=== PATIENT | female | born 1960 | race Caucasian/White ===

== ENCOUNTER → 2018-04-11 13:06 | Outpatient (CLI) | payer OTHER, SELFPAY ==
--- NOTE | 2018-04-11 | DI.MG.S_ITS ---
BILATERAL DIGITAL SCREENING MAMMOGRAM 3D/2D WITH CAD POST LUMPECTOMY WITH AUGMENTATION: 04/11/2018 CLINICAL: Routine screening. Personal history of breast cancer. Comparison is made to exams dated: 12/14/2016 mammogram, 06/17/2015 mammogram, and 04/02/2014 mammogram - [facility]. There are scattered fibroglandular elements in both breasts. Current study was also evaluated with a Computer Aided Detection (CAD) system. Bilateral breast implants are stable. There are benign post operative findings in the right breast. There are linear scar markers overlying both breasts and the left axilla. There is a circular mole marker on the left breast. There is a punctate BB marker overlying the right nipple. No significant masses, calcifications, or other findings are seen in either breast. There has been no significant interval change. IMPRESSION: There is no mammographic evidence of malignancy. A 1 year screening mammogram is recommended. This exam was interpreted at Station ID: [id number]. NOTE: For mammograms, a report in lay terms will be sent to the patient. Approximately 15% of breast malignancies will not be visualized mammographically. In the management of a palpable breast mass, a negative mammogram must not discourage biopsy of a clinically suspicious lesion. Electronically Signed By: Jarocho Johnson M.D. ecl/:04/11/2018 21:06:32 letter sent: Normal Exam ACR BI-RADS Category 2: Benign Finding(s) 3342F
== END ==
PROVIDERS: Family Provider Family Medicine; PCP Family Medicine; Visit Provider Family Medicine
DX: Z12.31 Encounter for screening mammogram for malignant neoplasm of breast (principal); Z85.3 Personal history of malignant neoplasm of breast
CPT/HCPCS: 77063; 77067

== ENCOUNTER → 2018-05-16 13:53 | Outpatient (CLI) | payer OTHER, SELFPAY ==
--- NOTE | 2018-05-16 | DI.ECHO.S_ITS ---
[facility] +---------+ : : [address] : : : : [id number] : : : : Phone: [phone]+ Echocardiogram Report + + :Name: ALISHA BEATTY Study Date: 05/16/2018 Height: 67 in : :[facility] Weight: 159 lb : : Gender: Female BSA: 1.8 m2 : :: 1960 Age: 57 yrs BP: 122/84 mmHg: :Reason For Study: Hypertension : : Performed By: Catherine Hoffmann : :Referring: MATTHEW RAMIREZ : + + Interpretation Summary The left ventricle is normal in size, wall thickness, and systolic function without any focal wall motion abnormalities. The ejection fraction is estimated to be 60-65%. Diastolic parameters suggest probable normal left ventricular diastolic function and normal filling pressures. LV ejection fraction has not changed. The right ventricle grossly appears normal in size with probable normal systolic function. The right ventricular systolic pressure is estimated to be at least 23 mmHg based on an estimated right atrial pressure of 3 mm Hg. The left atrial size is normal. Right atrial size is normal. There is no significant valvular heart disease. The aortic arch is mildly enlarged, which has mildly increased from 3.2 cm to 3.5 cm. Procedure: A two-dimensional transthoracic echocardiogram with color flow and Doppler was performed. The study quality was technically adequate. Comparison is made with the echocardiogram of 04-19-17. The patient was in normal sinus rhythm during the exam. Left Ventricle: The left ventricle is normal in size, wall thickness, and systolic function without any focal wall motion abnormalities. The ejection fraction is estimated to be 60-65%. Diastolic parameters suggest probable normal left ventricular diastolic function and normal filling pressures. Right Ventricle: The right ventricle grossly appears normal in size with probable normal systolic function. Atria: The left atrial size is normal. Right atrial size is normal. The interatrial septum is intact with no evidence for an atrial septal defect. Mitral Valve: The mitral valve is normal in structure and function. There is no mitral regurgitation noted. Aortic Valve: The aortic valve opens well. The aortic valve is not well visualized. No aortic regurgitation is present. Tricuspid Valve: The tricuspid valve is normal in structure and function. There is a trace or physiologic amount of tricuspid regurgitation. The right ventricular systolic pressure is estimated to be at least 23 mmHg based on an estimated right atrial pressure of 3 mm Hg. Pulmonic Valve: The pulmonic valve is normal in structure and function. There is a trace or physiologic amount of pulmonic regurgitation. There is no significant valvular heart disease. Great Vessels: The aortic root is normal size. The dimensions of the ascending aorta are normal. The aortic arch is mildly enlarged. The IVC is of normal diameter and collapses greater than 50% with a sniff. This suggests a low right atrial pressure of 3 mm Hg. Pericardium/ Pleura There is no pericardial effusion. There is no pleural effusion. MMode/2D Measurements & Calculations LVIDd: 4.6 cm Aortic Jxn: 2.4 cm LVIDs: 2.8 cm asc Aorta Diam: 3.3 cm FS: 38.8 % Ao Arch Diam (Prox Trans): 3.5 cm EPSS: 0.22 cm IVSd: 0.87 cm LVPWd: 0.82 cm LV mclain. diameter/BSA (cm/m^2): 2.5 LV sys. diameter/BSA (cm/m^2): 1.5 LA dimension: 3.8 cm RA long axis: 4.4 cm LA A2 area: 15.3 cm2 RA area: 13.0 cm2 LA A4 area: 18.0 cm2 RA vol: 32.5 ml LA length (vol): 5.0 cm RA : 17.7 ml/m2 LA vol: 47.0 ml IVC diam: 1.3 cm LA vol index: 25.6 ml/m2 RVDd major: 5.4 cm RVD1 (basal): 3.4 cm RVD2 (mid): 2.6 cm Doppler Measurements & Calculations Ao V2 max: 158.9 cm/sec MV E max ton: 74.1 cm/sec Ao V2 mean: 95.1 cm/sec MV A max ton: 66.7 cm/sec Ao max P.1 mmHg MV E/A: 1.1 Ao mean P.4 mmHg Med Peak E' Ton: 6.8 cm/sec Ao V2 VTI: 32.7 cm E/E' med: 10.8 Lat Peak E' Ton: 8.3 cm/sec E/E' lat: 8.9 E/e' average: 9.9 MV dec time: 0.23 sec MV P1/2t: 66.7 msec TR max ton: 222.3 cm/sec MV P1/2t max ton: 73.7 cm/sec TR max P.8 mmHg MVA(P1/2t): 3.3 cm2 PA V2 max: 78.1 cm/sec PA V2 mean: 49.0 cm/sec PA mean P.1 mmHg PA Accel Time: 0.19 sec Reading Physician:05:23 PM
== END ==
PROVIDERS: PCP Family Medicine; Visit Provider Family Medicine
DX: I10 Essential (primary) hypertension (principal); I49.3 Ventricular premature depolarization
CPT/HCPCS: 93306

== ENCOUNTER 2018-06-20 06:23 | Day surgery (SDC) | payer OTHER, SELFPAY ==
[2018-06-20] VITALS (7 sets, daily range): BP systolic 91–115; BP diastolic 57–71; PULSE 57–77; RESP 12–18; TEMP 36.1–37.1; O2SAT 95–100; BMI 24.2
--- NOTE | 2018-06-20 | PATH_ITS ---
[facility] Accession Number: [id number] . 01 Material submitted: . PART A: COLON POLYP BIOPSY AT 85CM X3 PART B: COLON BIOPSY AT 50CM PART C: COLON POLYP BIOPSY AT 20CM PART D: ANUS POLYP BIOPSY . 02 Diagnosis: A. Biopsy, Colon Polyp at 85 cm: Tubular adenoma involving single biopsy fragment. Two fragments of normal appearing colon mucosa consistent with mucosal polypoid redundancy. . B. Colon Biopsy at 50 cm: Fragments of normal appearing colon mucosa. Negative for significant architectural distortion. Negative for significant inflammation, dysplasia, and malignancy. . C. Biopsy, Colon Polyp at 20 cm: Tubular adenoma involving single biopsy fragment. . D. Biopsy, Anus Polyp: Hyperplastic polyp involving rectal mucosa. No anal mucosa identified. MRV/06/23/2018 . 02 Electronically signed: . Gt Godoy MD, Pathologist NPI- [id number] . 01 Gross description: . Part A: COLON POLYP BIOPSY AT 85CM X3: Received in formalin are 3 fragment(s) of tabor, soft tissue measuring 0.2 x 0.2 x 0.2 cm to 0.4 x 0.2 x 0.2 cm which is entirely submitted and submitted entirely in 1 cassette(s) Part B: COLON BIOPSY AT 50CM: Received in formalin are 3 fragment(s) of tabor, soft tissue measuring 0.1 x 0.1 x 0.1 cm to 0.3 x 0.2 x 0.2 cm which is entirely submitted and submitted entirely in 1 cassette(s) Part C: COLON POLYP BIOPSY AT 20CM: Received in formalin are multiple fragment(s) of tabor, soft tissue measuring 0.1 x 0.1 x 0.1 cm to 0.4 x 0.2 x 0.2 cm which are entirely submitted and submitted entirely in 1 cassette(s) Part D: ANUS POLYP BIOPSY: Received in formalin is 1 fragment(s) of tabor, soft tissue measuring 0.3 x 0.2 x 0.2 cm which is entirely submitted and submitted entirely in 1 cassette(s) /D[facility] /[facility] . 02 Pathologist provided ICD-10: D12.4 . 02 CPT . 118744, 989075, 245203, [id number] Performed at: 01 [facility] [address] [id number] MD Javier Grace MD Phone: [phone] Performed at: 02 [facility] [address] [place] [id number] MD Marilyn Pichardo MD Phone: [phone]
[2018-06-20] MEDS: SODIUM CHLORIDE 0.9% 1,000 ML 200 ML IV (07:45)
--- NOTE | 2018-06-20 08:25 | PM.HP.1 ---
History of Present Illness Date Patient Seen: 06/20/18 Time Patient Seen: 08:25 Chief complaint: [id number] Narrative: The patient is a woman here for a colonoscopy. Her daughter has colon cancer. She has had her last exam 6 years ago. She has been having rectal bleeding. She feels like there is a paper cut at her anus intermittently and then she has blood on the tissue Patient History Medical History Hemorrhoids (Acute) History of UTI (Acute) History of breast cancer (Acute) Hyperlipidemia (Acute) Seasonal allergies (Acute) Sinus drainage (Acute) HTN (hypertension) (Chronic) Hx of malignant neoplasm of female breast (Resolved) Surgical History History of removal of Port-a-Cath (Acute ~2002) Hx of bladder repair surgery (Acute) H/O rectocele repair (Resolved) History of augmentation of both breasts (Resolved) History of lumpectomy of right breast (Resolved) S/P complete hysterectomy (Resolved) Family History Mother Hypertension Cancer Father Hypertension Heart disease Stroke Social History marital status: household members: spouse, family and children occupational status: employed Smoking Status: Never smoker alcohol intake: current substance use type: does not use Family & Social History Family History Mother Hypertension Cancer Father Hypertension Heart disease Stroke Social History: household members spouse,family,children Tobacco & Substance use: Smoking Status Never smoker alcohol intake current Meds Home Medications Medication Instructions Recorded Confirmed Type atorvastatin 10 mg tablet 10 mg PO DAILY 05/20/18 06/20/18 History calcium carb-magnesium oxide-vit C 1,000 tab PO DAILY tab 05/20/18 06/20/18 History 400 mg calcium-117 mg-167 mg tablet cholecalciferol (vitamin D3) 5,000 5,000 unit PO DAILY 05/20/18 06/20/18 History unit capsule hydrochlorothiazide 12.5 mg tablet 12.5 mg PO DAILY 05/20/18 06/20/18 History multivitamin tablet 1 tab PO DAILY 05/20/18 06/20/18 History lisinopril 20 mg PO DAILY 06/20/18 06/20/18 History Allergies Allergy/AdvReac Type Severity Reaction Status Date / Time No Known Drug Allergies Allergy Verified 06/20/18 08:25 Review of Systems Review of Systems All systems reviewed & are unremarkable except as noted in HPI and below Cardiovascular Comments: Hypertension and irregular heartbeat at times. Elevated cholesterol. Genitourinary Comments: Gets urinary tract infections Exam Vital Signs (past 8 hours): - 06/20/18 07:09 Temperature 98.7 F Pulse Rate 57 L Respiratory Rate 15 Blood Pressure 115/71 Pulse Oximetry 100 Oxygen Delivery Method Room Air Narrative Exam Narrative: No apparent distress. Lungs are clear no rales or rhonchi heart regular rate and rhythm no murmur or gallop abdomen is soft nontender without mass. Alert and oriented x3. Assessment & Plan Assessment & Plan narrative: Patient for screening colonoscopy due to family history. I have discussed procedure rationale with her. Risks of bleeding, infection, perforation which would necessitate a major operation, failure to find removal lesions on the potential tattoo were all discussed. She appears to understand and wishes to proceed.
--- NOTE | 2018-06-20 08:28 | PM.PREOP ---
Pre-operative Note Interval Note History & Physical reviewed/Exam performed by Physician: Yes Changes to H&P: No
[2018-06-20] MEDS: MIDAZOLAM 5 MG/5 ML VIAL IV (08:37)
[2018-06-20] MEDS: fentaNYL 250 MCG/5 ML INJ IV (08:38)
--- NOTE | 2018-06-20 09:13 | PM.OP.ENDO ---
Operative Date/Time/Diagnoses Date of procedure: 06/20/18 Time of procedure: 09:13 Pre-op diagnosis: Daughter with colon cancer. Last exam 6 years ago. Post-op diagnosis: same (Multiple polyps all small.) Procedure & Clinicians Study performed: Colonoscopy with cold biopsy Same procedure as scheduled: Yes Indications: Screening Surgeon: Derrick Alfaro Procedure Notes SCOAP/Timeout: Performed Procedure in detail: The patient was placed in the left lateral decubitus position and underwent IV sedation directed by the surgeon consisting of fentanyl and Versed. Digital exam was remarkable for a tight anal sphincter. Topical lidocaine gel was placed.. The scope was inserted and advanced through the rectum into the sigmoid, descending, transverse, and ascending colon. Pressure was applied we made our way into the cecum. The cecum was reached identified by the ileocecal valve and the appendiceal opening. The ileocecal valve was successfully cannulated. The terminal ileum was normal in appearance. The scope was gradually brought out. Polyps were found at 85 cm (3), 50 cm, 20 cm, and just inside the anus. All were removed with biopsy forceps. The scope ultimately was retroflexed in the rectum. The appearance was remarkable for small hemorrhoids. The scope was removed and the patient tolerated the procedure well. Prep was good Scope withdrawal time: 16.5 min Sedation minutes: 34 Findings: internal hemorrhoids (Small without ulceration) and polyp (Multiple) Specimen(s): other (Polyps) Complications: none Recommendations: Colonscopy in 5 years (Due to family history) Follow up: as needed Disposition: PACU
--- NOTE | 2018-06-20 10:06 | SUR.PHASEII ---
patients blood pressure below 100 systolic pt states she is very tired. Allowing her to rest for a few minutes and will recheck her blood pressure pt arrived to hospital with a blood pressure of 115 systolically . pt drinking water and at bedside. pt denies dizziness and just says she is sleepy.
== END 2018-06-20 10:50 | disposition home or self-care (01) ==
LOC: ENDO 06:26
PROVIDERS: PCP Family Medicine; Visit Provider Specialist
PROC: 0DJD8ZZ Inspection of Lower Intestinal Tract, Via Natural or Artificial Opening Endoscopic (ICD-10-PCS; CPT 45378; principal; 2018-06-20 07:45)
DX: Z12.11 Encounter for screening for malignant neoplasm of colon (principal); Z80.0 Family history of malignant neoplasm of digestive organs; K64.8 Other hemorrhoids; D12.4 Benign neoplasm of descending colon; E78.5 Hyperlipidemia, unspecified; I10 Essential (primary) hypertension
CPT/HCPCS: 45380; 99152; 99153; J2250; J3010

== ENCOUNTER 2018-08-22 08:32 | Day surgery (SDC) | payer OTHER, SELFPAY ==
[2018-08-12 10:16] VITALS: BMI 24.3
[2018-08-22] VITALS (7 sets, daily range): BP systolic 109–130; BP diastolic 68–81; PULSE 58–94; RESP 11–16; TEMP 35.9–36.7; O2SAT 80–100; BMI 24.8
[2018-08-22] MEDS: LACTATED RINGERS 1,000 ML 100 ML IV (09:25)
--- NOTE | 2018-08-22 10:16 | SUR.OPER ---
Lithotomy on padded OR bed, head on pillow, arms secured on padded arm boards at <90 degrees abduction. Legs secured in padded yellow fins stirrups.
--- NOTE | 2018-08-22 10:19 | PM.PREOP ---
Pre-operative Note Interval Note History & Physical reviewed/Exam performed by Physician: Yes Changes to H&P: No
--- NOTE | 2018-08-22 10:21 | PM.HP.1 ---
History of Present Illness Date Patient Seen: 08/22/18 Time Patient Seen: 10:21 Chief complaint: [id number] Narrative: Patient is a 58-year-old with an exposed piece of TVT in the vagina She is here for a revision of the TVT by reburying the exposed piece Patient History Family & Social History Social History: household members spouse,family,children Tobacco & Substance use: Smoking Status Never smoker alcohol intake current Substance Use Type does not use Meds Home Medications Medication Instructions Recorded Confirmed Type atorvastatin 10 mg tablet 10 mg PO DAILY 05/20/18 08/22/18 History calcium carb-magnesium oxide-vit C 1,000 tab PO DAILY tab 05/20/18 08/22/18 History 400 mg calcium-117 mg-167 mg tablet cholecalciferol (vitamin D3) 5,000 5,000 unit PO DAILY 05/20/18 08/22/18 History unit capsule hydrochlorothiazide 12.5 mg tablet 12.5 mg PO DAILY 05/20/18 08/22/18 History multivitamin tablet 1 tab PO DAILY 05/20/18 08/22/18 History estradiol 10 mcg vaginal tablet 10 mcg VAG 2XW #8 tab 06/20/18 08/22/18 Rx lisinopril 20 mg PO DAILY 06/20/18 08/22/18 History Allergies Allergy/AdvReac Type Severity Reaction Status Date / Time No Known Drug Allergies Allergy Verified 08/22/18 09:06 Exam Vital Signs (past 8 hours): - 08/22/18 09:14 Temperature 98.1 F Pulse Rate 66 Respiratory Rate 16 Blood Pressure 120/72 Pulse Oximetry 100 Oxygen Delivery Method Room Air Narrative Exam Narrative: HEENT: [No thyromegaly, no anterior cervical or supraclavicular lymphadenopathy.] Lungs:[Clear to auscultation bilaterally, no wheezes.] Cardiovascular: [Regular rate and rhythm, no murmurs, rubs, or gallops]. Abdomen: [No scars. No hepatosplenomegaly. No masses palpable.] External genitalia: [Normal] Vagina: Exposed piece of TVT on the anterior vaginal wall Cervix: [Normal] Bimanual exam: 6 Week size uterus. Mobile. Rectal: [No masses]. Assessment & Plan (1) Erosion of suburethral sling: Current visit: Yes Status: Acute Assessment & Plan narrative: Assessment: 58-year-old with exposed piece of suburethral sling Plan: Revision of the TVT The risks, benefits, and alternatives to the procedure were explained to the patient. The risks including bleeding, infection, injury to the bladder, urethra, or ureters. She understands these risks and agrees to proceed. A full PAR-Q was held and consent form was signed. Time Spent With Patient Time with patient: 15-24 minutes
[2018-08-22] MEDS: CEFAZOLIN 2 GM/100 ML FROZ.PIGGY IV (10:22)
[2018-08-22] MEDS: BUPIVACAINE 0.5% W/ EPI (PF) VIAL 30 ML INJ (10:45)
--- NOTE | 2018-08-23 14:33 | PM.GYNOP.1 ---
Operative Date/Time/Diagnoses Date of procedure: 08/22/18 Time of procedure: 11:30 Pre-op diagnosis: Erosion of suburethral sling Post-op diagnosis: same Procedure: Procedures Operation Date: 08/22/18 09:45 Actual Procedures Side Surgeon p Tensionless Vaginal Tape Revision Nela Chávez MD Indications: Erosion of suburethral sling aware of the sling during intercourse Surgeon: Nela Chávez Anesthesia Type: General (LMA) Operative Notes Findings: Suburethral sling, TVT, exposed on the patient's left side just lateral of midline. There is a calculi measuring 0.5 cm x 0.4 cm attached to the exposed sling Closure Type: primary Specimen(s): none Applied: catheter (Red rubber in place throughout the procedure) Estimated blood loss (mL): 5 Blood products transfused: none Procedure in detail: After informed consent was obtained, the patient was taken to the operating room where she was placed in the dorsal supine position. After adequate LMA general anesthesia was achieved, the patient was placed in the dorsal lithotomy position, and prepped and draped in the usual sterile fashion. A weighted speculum was placed into the vagina on the patient's left side the calculus was grasped with a pickup and excised with the Metzenbaum scissors. The piece of underlying suburethral sling was visualized. An elliptical incision was made around the exposed sling, approximately 0.5 cm by 0.3 cm. The mucosa and piece of sling were removed. The defect was closed with simple interrupted sutures with 4 0 Vicryl. The remainder of the sling was palpated and there were no more exposed pieces. A red rubber catheter had been placed into the urethra at the beginning of the case and this was removed. The urine was clear. The area was irrigated with warm normal saline. No bleeding was noted. The weighed speculum was removed from the vagina. Sponge, lap, and instrument counts were correct x2. The patient tolerated the procedure well, was taken to PACU in stable condition. Complications: none Post-operative Condition: stable Disposition: PACU Plan for aftercare: Home after recovery
== END 2018-08-22 11:52 | disposition home or self-care (01) ==
PROVIDERS: PCP Family Medicine; Visit Provider Obstetrics & Gynecology
PROC: 0TSD0ZZ Reposition Urethra, Open Approach (ICD-10-PCS; CPT 57287; principal; 2018-08-22 09:45)
DX: T83.712A Erosion of implanted urethral mesh to surrounding organ or tissue, initial encounter (principal); T83.721A Exposure of implanted vaginal mesh into vagina, initial encounter
CPT/HCPCS: 57287; J0690; J1100; J2405; J2704; J3010

== ENCOUNTER → 2019-02-03 19:12 | Outpatient (CLI) | payer OTHER, SELFPAY | PROVIDERS: PCP Family Medicine; Visit Provider Nurse Practitioner | DX: M54.9 Dorsalgia, unspecified (principal) | CPT/HCPCS: 87077; 87086; 87186 ==

== ENCOUNTER 2019-04-13 10:33 | Emergency (ER) | payer OTHER, SELFPAY ==
--- NOTE | 2019-04-13 11:06 | DI.RAD.S_ITS ---
PROCEDURE: XR ANKLE RT MIN 3V INDICATIONS: injury/swelling/pain TECHNIQUE: 3 views of the ankle were acquired. COMPARISON: None. FINDINGS: Bones: There is a nondisplaced obliquely oriented fracture of the lateral malleolus. The alignment of the ankle mortise is within normal limits. There is no widening of the distal tibiofibular syndesmosis. No suspicious osseous lesions are present. There mild degenerative changes of the tibiotalar joint. There is a moderate-sized plantar calcaneal spur. Soft tissues: There is a small tibiotalar joint effusion. Soft tissue swelling about the ankle is more prominent overlying the lateral malleolus. IMPRESSION: 1. Nondisplaced lateral malleolar fracture. 2. Plantar calcaneal spur. Dictated by: Harlan Beyer M.D. on 04/13/2019 at 10:28 Approved by: Harlan Beyer M.D. on 04/13/2019 at 10:31
[2019-04-13 11:07] VITALS: BP 125/80; PULSE 63; RESP 13; TEMP 36.3; O2SAT 98
--- NOTE | 2019-04-13 11:33 | ED_ITS ---
HPI - Extremity Injury (Lower) <HILDA Valentine-BC - Last Filed: 04/13/19 12:44> General Chief Complaint: Extremity Injury, Lower Stated Complaint: right leg injury Time Seen by Provider: 04/13/19 11:13 Source: patient and family Mode of arrival: Wheelchair Limitations: no limitations History of Present Illness HPI Narrative: The patient is a 58-year-old female nonsmoker with history of hyperlipidemia who presents with a chief complaint of right ankle pain. She slipped on her deck yesterday when it was wet outside. She complains of bruising on the outside of her right ankle. She denies any previous injuries to her right ankle. She denies any other injuries from the fall of an abrasion on her right knee. Has been walking and weight-bearing since her fall. Related Data Home Medications Medication Instructions Recorded Confirmed atorvastatin 10 mg tablet 10 mg PO DAILY 05/20/18 02/03/19 calcium carb-magnesium oxide-vit C 1,000 tab PO DAILY tab 05/20/18 10/03/18 400 mg calcium-117 mg-167 mg tablet cholecalciferol (vitamin D3) 5,000 5,000 unit PO DAILY 05/20/18 10/03/18 unit capsule hydrochlorothiazide 12.5 mg tablet 12.5 mg PO DAILY 05/20/18 02/03/19 multivitamin 1 tab PO DAILY 05/20/18 10/03/18 lisinopril 20 mg PO DAILY 06/20/18 02/03/19 Previous Rx's Medication Instructions Recorded estradiol 0.5 gram VAG DAILY #42.5 gram 08/22/18 Allergies Allergy/AdvReac Type Severity Reaction Status Date / Time No Known Drug Allergies Allergy Verified 02/03/19 18:08 Review of Systems <GEOFF ValentineBC - Last Filed: 04/13/19 12:44> Review of Systems Narrative: GENERAL: Denies chills, fatigue, malaise, fever, sweats. HEENT: Denies sinus pain, ear pain, sore throat, difficulty swallowing, d izziness. RESPIRATORY: Denies dyspnea, cough, wheezing, hemoptysis, sputum. CARDIOVASCULAR: Denies chest pain, palpitations, orthopnea, edema, GASTROINTESTINAL: Denies nausea, vomiting, abdominal pain, diarrhea, constipation, melena. : Denies dysuria, frequency, incontinence, hematuria, urinary retention. MUSCULOSKELETAL: See HPI SKIN: See HPI NEUROLOGIC: Denies weakness, headache, numbness, change in speech, confusion, seizures, incoordination. PSYCHIATRIC: No concerning psychosocial issues. 12 point review of systems is negative except for those stated above Patient History <Loli BRYSON Meredith - Last Filed: 04/13/19 12:44> Social History (Updated 05/20/18 @ 11:21 by María Elena Simmons LPN) marital status: household members: spouse, family and children occupational status: employed Smoking Status: Never smoker alcohol intake: current substance use type: does not use Smoking Status: Never smoker Substance Use Type: does not use Exam <BRYSON Valentine - Last Filed: 04/13/19 12:44> Narrative Exam Narrative: GENERAL: This is a well-nourished, well-developed patient, in no acute distress HEAD: Atraumatic. Normocephalic. No temporal or scalp tenderness. EYES: Pupils equal round and reactive. Extraocular motions intact. No scleral icterus. No injection or drainage. ENT: Nose without bleeding, purulent drainage or septal hematoma. Throat without erythema, tonsillar hypertrophy or exudate. Uvula midline. Airway patent. NECK: Trachea midline. No JVD or lymphadenopathy. Supple, nontender, no meningeal signs. CARDIOVASCULAR: Regular rate and rhythm RESPIRATORY: No cough. No increased respiratory effort. No accessory muscle use. EXTREMITIES: Pain to palpation right lateral ankle. Able to flex and extend right foot. Moving all toes. Capillary refill less than 2 seconds. Positive pedal pulses. BACK: Nontender without deformity or crepitance. No flank tenderness. NEURO: AOx3. SKIN: Ecchymosis noted on lateral aspect of right ankle extending over right foot Initial Vital Signs Initial Vital Signs: Vital Signs Temperature 97.4 F L 04/13/19 11:07 Pulse Rate 63 04/13/19 11:07 Respiratory Rate 13 04/13/19 11:07 Blood Pressure 125/80 04/13/19 11:07 Pulse Oximetry 98 04/13/19 11:07 <Isadora Bond DO - Last Filed: 04/14/19 07:07> Initial Vital Signs Initial Vital Signs: Vital Signs Temperature 97.4 F L 04/13/19 11:07 Pulse Rate 63 04/13/19 11:07 Respiratory Rate 13 04/13/19 11:07 Blood Pressure 125/80 04/13/19 11:07 Pulse Oximetry 98 04/13/19 11:07 Procedures <BRYSON Valentine - Last Filed: 04/13/19 12:44> Orthopedic Splinting/Casting Injury #1: Side: right Lower Extremity Injury Location: ankle Lower Extremity Immobilizer: boot orthosis (tall) Other Orthopedic Equipment: crutches Post splinting neuro exam: intact Post splinting vascular exam: intact Placed by: Nursing Course <BRYSON Valentine - Last Filed: 04/13/19 12:44> Orders Ordered: Discontinued Medications Ibuprofen (Advil) 800 mg PO NOW ONE Stop: 04/13/19 12:24 Last Admin: 04/13/19 12:28 Dose: 800 mg Documented by: BTONER Vital Signs Vital signs: Vital Signs - 8 hr 04/13/19 11:07 Temperature 97.4 F L Pulse Rate 63 Respiratory Rate 13 Blood Pressure 125/80 Pulse Oximetry 98 <Isadora Bond DO - Last Filed: 04/14/19 07:07> Orders Ordered: Discontinued Medications Ibuprofen (Advil) 800 mg PO NOW ONE Stop: 04/13/19 12:24 Last Admin: 04/13/19 12:28 Dose: 800 mg Documented by: BTONER Vital Signs Vital signs: Vital Signs - 8 hr 04/13/19 11:07 Temperature 97.4 F L Pulse Rate 63 Respiratory Rate 13 Blood Pressure 125/80 Pulse Oximetry 98 MDM - Extremity Injury (Lower) <BRYSON Valentine - Last Filed: 04/13/19 12:44> Imaging Data Extremity x-ray #1: Radiologist's Impression: [address] [address] XRay Report Signed Patient: Maria Guadalupe Ny LMR#: [id number] : 2Acct:[id number] Age/Sex: 58 / FDate of Service: 04/13/19 Loc: ED Accession Number: [id number] Procedure: XR ankle RT min 3V Ordering Provider: Isadora Bond D.O. PROCEDURE: XR ANKLE RT MIN 3V INDICATIONS: injury/swelling/pain TECHNIQUE: 3 views of the ankle were acquired. COMPARISON: None. FINDINGS: Bones: There is a nondisplaced obliquely oriented fracture of the lateral malleolus. The alignment of the ankle mortise is within normal limits. There is no widening of the distal tibiofibular syndesmosis. No suspicious osseous lesions are present. There mild degenerative changes of the tibiotalar joint. There is a moderate-sized plantar calcaneal spur. Soft tissues: There is a small tibiotalar joint effusion. Soft tissue swelling about the ankle is more prominent overlying the lateral malleolus. IMPRESSION: 1. Nondisplaced lateral malleolar fracture. 2. Plantar calcaneal spur. Dictated by: Harlan Beyer M.D. on 04/13/2019 at 10:28 Approved by: Harlan Beyer M.D. on 04/13/2019 at 10:31 MDM Narrative Medical decision making narrative: The patient is a 58-year-old female who presents with a chief complaint of right ankle pain 1 day after a slip and fall. X-ray shows nondisplaced lateral malleolar fracture. I spoke with Dr. Gregory from [facility] who viewed her films, suggested toe walking boot crutches nonweightbearing. Encouraged to follow up with primary care provider as well as [facility]. Patient declined any pain medication other than Motrin. Did not want any prescriptions of anything stronger. Discussed at length rest ice compression elevation as well as [id number] medications as needed and able. Patient is neurovascularly intact throughout her stay in the emergency department. Declines any other injuries and states that her fall resulted in an isolated lower leg injury. Patient has no questions or concerns upon discharge and states understanding of return precautions as well as follow-up care. Discharge Plan Departure Patient Disposition: Home Clinical Impression: Ankle fracture Qualifiers: Encounter type: initial encounter Fracture type: closed Laterality: right Qualified Code(s): S82.891A - Other fracture of right lower leg, initial encounter for closed fracture Discharge Date/Time: 04/13/19 12:55 Instructions: How to Use Crutches, DI for Ankle Fracture, How To Perform RICE (Rest, Ice, Compress, Elevate), How to Use a Walking Boot Activity Restrictions/Additional Instructions: Today we found that you have a fracture on the outside of your ankle. We've placed you in a boot. We've given you crutches. Please remain nonweightbearing. I spoke with Dr. Gregory from [facility], who viewed your x- rays. Your welcome to follow up with them. Please use rest ice compression elevation as well as [id number] pain medications as needed and able I also suggest following up with primary care provider. Please come back to emergency department for any acute concerns. Prescriptions: No Action hydrochlorothiazide 12.5 mg tablet 12.5 mg PO DAILY RF: 0 atorvastatin [Lipitor] 10 mg tablet 10 mg PO DAILY RF: 0 Ca carbonate-mag oxide-vit C 400 mg calcium -117 mg-167 mg tablet 1,000 tab PO DAILY RF: 0 cholecalciferol (vitamin D3) 5,000 unit capsule 5,000 unit PO DAILY RF: 0 multivitamin tablet 1 tab PO DAILY RF: 0 lisinopril 20 mg Tablet 20 mg PO DAILY RF: 0 estradiol 0.01 % (0.1 mg/gram) cream 0.5 gram VAG DAILY Qty: 42.5 RF: 0 Referrals: [facility] [Provider Group] Sadie Hernandez MD [Primary Care Provider] - Stand Alone Forms: Work Release Note
[2019-04-13] MEDS: IBUPROFEN 400 MG TABLET 800 MG PO (12:28)
[2019-04-13 12:55] VITALS: BP 136/76; PULSE 80; RESP 16
== END 2019-04-13 12:55 | disposition home or self-care (01) ==
PROVIDERS: Emergency Provider Nurse Practitioner Family; PCP Family Medicine
DX: S82.891A Other fracture of right lower leg, initial encounter for closed fracture (principal); W01.0XXA Fall on same level from slipping, tripping and stumbling without subsequent striking against object, initial encounter
CPT/HCPCS: 73610; 99283; 99284

== ENCOUNTER → 2019-05-15 09:47 | Outpatient (CLI) | payer OTHER, SELFPAY ==
--- NOTE | 2019-05-15 | DI.RAD.S_ITS ---
This blank DEXA report has been sent in error by the PACS system. The correct and complete report will be forthcoming in 1-2 days. Thank you for your patience and understanding. Dictated by: Tara Comer MD, PhD on 05/15/2019 at 10:12 Approved by: Tara Comer MD, PhD on 05/15/2019 at 10:14
== END ==
PROVIDERS: PCP Family Medicine; Referring Provider Family Medicine; Visit Provider Family Medicine
DX: M85.851 Other specified disorders of bone density and structure, right thigh (principal); Z78.0 Asymptomatic menopausal state; Z85.3 Personal history of malignant neoplasm of breast; Z90.722 Acquired absence of ovaries, bilateral
CPT/HCPCS: 77080

== ENCOUNTER → 2019-05-29 13:41 | Outpatient (CLI) | payer OTHER, SELFPAY ==
--- NOTE | 2019-05-29 | DI.MG.S_ITS ---
BILATERAL DIGITAL SCREENING MAMMOGRAM 3D/2D WITH CAD POST LUMPECTOMY WITH AUGMENTATION: 05/29/2019 CLINICAL: Routine screening. Personal history of right breast cancer. Comparison is made to exams dated: 04/11/2018 mammogram, 12/14/2016 mammogram, and 06/17/2015 mammogram - [facility]. There are scattered fibroglandular elements in both breasts. Current study was also evaluated with a Computer Aided Detection (CAD) system. Bilateral breast implants are stable. There are benign post operative findings in both breasts. No significant masses, calcifications, or other findings are seen in either breast. There has been no significant interval change. IMPRESSION: There is no mammographic evidence of malignancy. A 1 year screening mammogram is recommended. This exam was interpreted at Station ID: [id number]. NOTE: For mammograms, a report in lay terms will be sent to the patient. Approximately 15% of breast malignancies will not be visualized mammographically. In the management of a palpable breast mass, a negative mammogram must not discourage biopsy of a clinically suspicious lesion. Electronically Signed By: Krish joseph/marcos:05/29/2019 14:37:31 letter sent: Normal Exam ACR BI-RADS Category 2: Benign Finding(s) 3342F
== END ==
PROVIDERS: PCP Family Medicine; Referring Provider Family Medicine; Visit Provider Family Medicine
DX: Z12.31 Encounter for screening mammogram for malignant neoplasm of breast (principal); Z85.3 Personal history of malignant neoplasm of breast
CPT/HCPCS: 77063; 77067

== ENCOUNTER → 2020-07-15 11:15 | Outpatient (CLI) | payer OTHER, SELFPAY ==
--- NOTE | 2020-07-15 | DI.MG.S_ITS ---
BILATERAL DIGITAL SCREENING MAMMOGRAM 3D/2D WITH CAD POST LUMPECTOMY WITH AUGMENTATION: 07/15/2020 CLINICAL: Routine screening. Personal history of right breast cancer. Comparison is made to exams dated: 05/29/2019 mammogram, 04/11/2018 mammogram, 12/14/2016 mammogram, 06/17/2015 mammogram, and 04/02/2014 mammogram - [facility]. There are scattered fibroglandular elements in both breasts. Current study was also evaluated with a Computer Aided Detection (CAD) system. Bilateral breast implants are stable. There are benign post operative findings in both breasts. No significant masses, calcifications, or other findings are seen in either breast. There has been no significant interval change. IMPRESSION: BENIGN There is no mammographic evidence of malignancy. A 1 year screening mammogram is recommended. This exam was interpreted at Station ID: [id number]. NOTE: For mammograms, a report in lay terms will be sent to the patient. Approximately 15% of breast malignancies will not be visualized mammographically. In the management of a palpable breast mass, a negative mammogram must not discourage biopsy of a clinically suspicious lesion. Electronically Signed By: Avila bey/marcos:07/15/2020 14:17:03 letter sent: Normal Exam ACR BI-RADS Category 2: Benign Finding(s) 3342F
== END ==
PROVIDERS: PCP Family Medicine; Referring Provider Family Medicine; Visit Provider Family Medicine
DX: Z12.31 Encounter for screening mammogram for malignant neoplasm of breast (principal); Z85.3 Personal history of malignant neoplasm of breast
CPT/HCPCS: 77063; 77067

== ENCOUNTER 2020-07-16 16:24 | Emergency (ER) | payer OTHER, SELFPAY ==
[2020-07-16 16:34] VITALS: BP 153/85; PULSE 64; RESP 18; TEMP 36.8; O2SAT 100; BMI 24.3
--- NOTE | 2020-07-16 16:38 | DI.RAD.S_ITS ---
PROCEDURE: XR WRIST LT MIN 3V INDICATIONS: PAIN AND SWELLING AFTER A FALL TECHNIQUE: 4 views of the wrist were acquired. COMPARISON: None. FINDINGS: Bones: There is a depressed and comminuted intra-articular fracture of the distal radius. There is minimal foreshortening as well as volar displacement of approximately 4 millimeters. In addition there is mildly displaced comminuted fracture of the ulnar styloid. Soft tissues: Diffuse soft tissue swelling. IMPRESSION: Displaced and foreshortened intra-articular comminuted fracture of the distal radius. Mildly displaced comminuted fracture of the ulnar styloid. Dictated by: Hussain Uriostegui D.O. on 07/16/2020 at 16:14 Approved by: Hussain Uriostegui D.O. on 07/16/2020 at 16:16
--- NOTE | 2020-07-16 16:38 | DI.RAD.S_ITS ---
PROCEDURE: XR ANKLE RT MIN 3V INDICATIONS: PAIN AND SWELLING AFTER A FALL TECHNIQUE: 3 views of the ankle were acquired. COMPARISON: [facility], CR, XR ANKLE RT MIN 3V, 04/13/2019, 11:04. FINDINGS: Bones: No acute fracture or dislocation. Ankle mortise is intact. Joint spacing is maintained. Mild degenerative changes of the ankle. Soft tissues: Questionable small joint effusion. Achilles tendon is unremarkable. Spurring of the calcaneus at the plantar fascial insertion. IMPRESSION: No acute osseous abnormality. Dictated by: Hussain Uriostegui D.O. on 07/16/2020 at 15:55 Approved by: Hussain Uriostegui D.O. on 07/16/2020 at 16:14
--- NOTE | 2020-07-16 18:08 | ED.UPPEXIN ---
HPI - Extremity Injury (Upper) General Chief Complaint: Extremity Injury, Upper Stated Complaint: fall, left wrist injury, right ankle injury Time Seen by Provider: 07/16/20 18:03 Source: patient Mode of arrival: Ambulatory Limitations: no limitations History of Present Illness HPI narrative: 60-year-old female nonsmoker without significant medical history presents with her and a chief complaint of and accidental ground level fall in which she slipped on a slippery floor in her bathroom and onto an outstretched left hand. She denies head, neck, or back pain. She has no chest pain or trouble breathing. She does have some mild swelling of left wrist and increased pain with any motion. she denies numbness, tingling or weakness. She has no elbow or shoulder pain. 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 Additionally, she has some mild lateral right ankle pain, but was able to ambulate in without significant difficulty. MD complaint: injury to: left Onset (ago): hour(s) Handedness: right Place: home Severity: moderate Relieving factors: immobilization and rest Exacerbating factors: movement of extremity Context: fall and direct blow Related Data Home Medications Medication Instructions Recorded Confirmed atorvastatin 10 mg tablet 10 mg PO DAILY 05/20/18 02/03/19 calcium carb-magnesium oxide-vit C 1,000 tab PO DAILY tab 05/20/18 10/03/18 400 mg calcium-117 mg-167 mg tablet cholecalciferol (vitamin D3) 125 5,000 unit PO DAILY 05/20/18 10/03/18 mcg (5,000 unit) capsule hydrochlorothiazide 12.5 mg tablet 12.5 mg PO DAILY 05/20/18 02/03/19 multivitamin 1 tab PO DAILY 05/20/18 10/03/18 lisinopril 20 mg PO DAILY 06/20/18 02/03/19 Previous Rx's Medication Instructions Recorded estradiol 0.5 gram VAG DAILY #42.5 gram 08/22/18 hydrocodone-acetaminophen 1 tab PO Q4-6H PRN #10 tab 07/16/20 Allergies Allergy/AdvReac Type Severity Reaction Status Date / Time No Known Drug Allergies Allergy Verified 07/16/20 16:34 Review of Systems Constitutional Constitutional: Denies chills, Denies fatigue, Denies fever(s), Denies frequent falls, Denies lethargy and Denies weakness Eyes Eyes: Denies change in vision, Denies eye discharge, Denies irritation and Denies loss of vision ENT Ears, Nose, Mouth, and Throat: Denies change in voice, Denies dizziness, Denies neck pain, Denies sore throat and Denies throat swelling Cardiovascular Cardiovascular: Denies chest pain, Denies irregular heart rhythm, Denies lightheadedness, Denies palpitations, Denies dyspnea, Denies dyspnea on exertion and Denies orthopnea Respiratory Respiratory: Denies cough, Denies dyspnea, Denies dyspnea on exertion and Denies wheezing Gastrointestinal Gastrointestinal: Denies abdominal pain, Denies change in bowel habits, Denies diarrhea, Denies nausea and Denies vomiting Musculoskeletal Musculoskeletal: Reports arthralgias, Reports joint swelling, Reports limited range of motion, Denies neck pain and Denies numbness Integumentary/Breasts Skin/Breast: Denies pruritus, Denies erythema, Denies rash and Denies wounds Neurologic Neurologic: Denies behavioral changes, Denies confusion, Denies dizziness, Denies frequent falls, Denies loss of vision, Denies numbness and Denies weakness Psychiatric Psychiatric: Denies anxiety, Denies behavioral changes, Denies confusion, Denies depression, Denies homicidal ideation and Denies suicidal ideation Endocrine Endocrine: Denies fatigue, Denies flushing and Denies palpitations Hematologic/Lymphatic Hematologic/Lymphatic: Denies easy bruising Allergic/Immunologic Allergic/Immunologic: Denies urticaria, Denies throat swelling and Denies wheezing Patient History Medical History Hemorrhoids History of breast cancer History of UTI HTN (hypertension) Hx of malignant neoplasm of female breast Hyperlipidemia Seasonal allergies Sinus drainage Surgical History H/O rectocele repair History of augmentation of both breasts History of lumpectomy of right breast History of removal of Port-a-Cath (~2002) Hx of bladder repair surgery S/P complete hysterectomy Status post surgery (08/22/18) Family History Mother Hypertension Cancer Father Hypertension Heart disease Stroke Social History marital status: household members: spouse, family and children occupational status: employed Smoking Status: Never smoker alcohol intake: current substance use type: does not use Smoking Status: Never smoker Substance Use Type: does not use Exam Narrative Exam Narrative: GENERAL: [60] year old patient appears stated age. Well-nourished, well-developed patient, in mild distress. GCS 15 HEAD: Atraumatic. Normocephalic. EYES: Pupils equal round and reactive. Extraocular motions intact. No scleral icterus. No injection or drainage. ENT: Nose without bleeding, purulent drainage. Throat without erythema, tonsillar hypertrophy or exudate. Airway patent. NECK: Trachea midline. Non tender CARDIOVASCULAR: Regular rate and rhythm without murmurs, gallops, or rubs. RESPIRATORY: Clear to auscultation. Breath sounds equal bilaterally. No wheezes, rales, or rhonchi. GASTROINTESTINAL: Abdomen soft, non-tender, nondistended. EXTREMITIES: Pain and some swelling to distal radius left arm, closed and neurovascularly intact. No pain, swelling or deformity to elbow or shoulder. Minimal tenderness to palpation of lateral right ankle, no swelling or deformity. BACK: Nontender without deformity or crepitance. No flank tenderness. NEURO: AOx3. SKIN: No rash or erythema of visible areas Initial Vital Signs Initial Vital Signs: Vital Signs Temperature 98.2 F 07/16/20 16:34 Pulse Rate 64 07/16/20 16:34 Respiratory Rate 18 07/16/20 16:34 Blood Pressure 153/85 H 07/16/20 16:34 Pulse Oximetry 100 07/16/20 16:34 Procedures Orthopedic Splinting/Casting Injury #1: Side: left Upper Extremity Injury Location: wrist Upper Extremity Immobilizer: sling/shoulder immobilizer and sugar tong splint Post splinting neuro exam: intact Post splinting vascular exam: intact Placed by: Nursing Course Orders Ordered: ED Orders 07/16/20 16:38 XR ankle RT min 3V Stat XR wrist LT min 3V Stat Discontinued Medications Hydrocodone Bitart/Acetaminophen (Hydrocodone/Acet 5/325 Prepack) 1 bottle MISC SEEINSTR ONE Stop: 07/16/20 18:09 Last Admin: 07/16/20 19:00 Dose: 1 bottle Documented by: ADRIANO Vital Signs Vital signs: Vital Signs - 8 hr 07/16/20 16:34 07/16/20 19:01 Temperature 98.2 F Pulse Rate 64 86 Respiratory Rate 18 16 Blood Pressure 153/85 H 126/73 Pulse Oximetry 100 98 MDM - Extremity Injury (Upper) Imaging Data Extremity x-ray #1: Radiologist's Impression: Maria Guadalupe Ny 60 F [address] [id number] ReportSigned Patient: Maria Guadalupe Ny LMR#: [id number]: [id number]:[id number]/Sex: 60 / FDate of Service: 07/16/20Loc: EDAccession Number: [id number] Procedure: XR wrist LT min 3V Ordering Provider: Loli Ford D.O. PROCEDURE: XR WRIST LT MIN 3V INDICATIONS: PAIN AND SWELLING AFTER A FALL TECHNIQUE: 4 views of the wrist were acquired. COMPARISON: None. FINDINGS: Bones: There is a depressed and comminuted intra-articular fracture of the distal radius. There is minimal foreshortening as well as volar displacement of approximately 4 millimeters. In addition there is mildly displaced comminuted fracture of the ulnar styloid. Soft tissues: Diffuse soft tissue swelling. IMPRESSION: Displaced and foreshortened intra-articular comminuted fracture of the distal radius. Mildly displaced comminuted fracture of the ulnar styloid. Dictated by: Hussain Uriostegui D.O. on 07/16/2020 at 16:14 Approved by: Hussain Uriostegui D.O. on 07/16/2020 at 16:16 Extremity x-ray #2: Radiologist's Impression: Maria Guadalupe Ny 60 F [address] [id number] ReportSigned Patient: Maria Guadalupe Ny LMR#: [id number]: [id number]:[id number]/Sex: 60 / FDate of Service: 07/16/20Loc: EDAccession Number: [id number] Procedure: XR ankle RT min 3V Ordering Provider: Loli Ford D.O. PROCEDURE: XR ANKLE RT MIN 3V INDICATIONS: PAIN AND SWELLING AFTER A FALL TECHNIQUE: 3 views of the ankle were acquired. COMPARISON: [facility], CR, XR ANKLE RT MIN 3V, 04/13/2019, 11:04. FINDINGS: Bones: No acute fracture or dislocation. Ankle mortise is intact. Joint spacing is maintained. Mild degenerative changes of the ankle. Soft tissues: Questionable small joint effusion. Achilles tendon is unremarkable. Spurring of the calcaneus at the plantar fascial insertion. IMPRESSION: No acute osseous abnormality. Dictated by: Hussain Uriostegui D.O. on 07/16/2020 at 15:55 Approved by: Hussain Uriostegui D.O. on 07/16/2020 at 16:14 MDM Narrative Medical decision making narrative: Patient demonstrates close, isolated and neurovascularly intact distal radius fracture with comminution and articular involvement. She is closed and NV in tact. Given minimal shortening and dorsal angulation there is very little to gain by attempt at procedural sedation and reduction attempt. I did have a lengthy discussion with patient and regarding this. They understand the high likelihood of surgery and need for follow up. Return precautions given and questions answered to their apparent satisfaction. Discharge Plan Departure Patient Disposition: Home Clinical Impression: Distal radius fracture, left Qualifiers: Encounter type: initial encounter Fracture type: closed Fracture morphology: Colles' Qualified Code(s): S52.532A - Colles' fracture of left radius, initial encounter for closed fracture Ankle sprain Qualifiers: Encounter type: initial encounter Involved ligament of ankle: unspecified ligament Laterality: right Qualified Code(s): S93.401A - Sprain of unspecified ligament of right ankle, initial encounter Instructions: DI for Distal Radius Fracture Activity Restrictions/Additional Instructions: *You have been diagnosed with [fall with left distal radius fracture and right ankle sprain ] *What to do: *Take medications as directed *Follow up Dr. Castillo at [facility], call Saturday morning for an appointment. Let them know you were seen in the Emergency Department and that we ask that you be seen in follow up *Return to ER if you should have any new, worsening or concerning symptoms, such as [increasing pain, numbness, tingling, weakness or other bothersome symptoms Splint Care: Keep splint clean and dry. Elevated affected body part to decrease swelling. OK to use ice pack on the affected body part. Use for 15-20 minutes each time, for 5-6x per day. If you develop worsening pain, numbness, tingling, discoloration of the affected body part, loosen the splint by loosening the YAZAN wrap, and either see your doctor for an urgent re-assessment, or return to the Emergency Department. Return to the Emergency Department for any new or worsening symptoms. ] Prescriptions: New hydrocodone-acetaminophen 5-325 mg tablet 1 tab PO Q4-6H PRN (Reason: pain) Qty: 10 RF: 0 No Action hydrochlorothiazide 12.5 mg tablet 12.5 mg PO DAILY RF: 0 atorvastatin [Lipitor] 10 mg tablet 10 mg PO DAILY RF: 0 Ca carbonate-mag oxide-vit C 400 mg calcium -117 mg-167 mg tablet 1,000 tab PO DAILY RF: 0 cholecalciferol (vitamin D3) 5,000 unit capsule 5,000 unit PO DAILY RF: 0 multivitamin tablet 1 tab PO DAILY RF: 0 lisinopril 20 mg Tablet 20 mg PO DAILY RF: 0 estradiol 0.01 % (0.1 mg/gram) cream 0.5 gram VAG DAILY Qty: 42.5 RF: 0 Referrals: Javi Castillo MD [Physician] - Sadie Hernandez MD [Primary Care Provider] -
[2020-07-16] MEDS: HYDROCODONE/ACET 5/325 PREPACK 1 BOTTLE MISC (19:00)
[2020-07-16 19:01] VITALS: BP 126/73; PULSE 86; RESP 16; O2SAT 98
--- NOTE | 2020-07-18 11:59 | PC.NURSE ---
Pt forgot prescription in ED at end of visit. Called and reached pt, she states she does not need it. Prescription shredded.
== END 2020-07-16 19:04 | disposition home or self-care (01) ==
PROVIDERS: Emergency Provider Emergency Medicine; PCP Family Medicine
DX: S52.532A Colles' fracture of left radius, initial encounter for closed fracture (principal); S93.401A Sprain of unspecified ligament of right ankle, initial encounter; W19.XXXA Unspecified fall, initial encounter
CPT/HCPCS: 29105; 73110; 73610; 99283

== ENCOUNTER → 2021-04-21 14:09 | Outpatient (CLI) | payer OTHER, SELFPAY | PROVIDERS: PCP Family Medicine; Referring Provider Family Medicine; Visit Provider Family Medicine | DX: M85.851 Other specified disorders of bone density and structure, right thigh (principal); Z78.0 Asymptomatic menopausal state; Z85.3 Personal history of malignant neoplasm of breast; Z90.722 Acquired absence of ovaries, bilateral | CPT/HCPCS: 77080 ==

== ENCOUNTER → 2021-07-07 14:01 | Outpatient (CLI) | payer OTHER, SELFPAY ==
--- NOTE | 2021-07-07 | DI.MG.S_ITS ---
BILATERAL DIGITAL SCREENING MAMMOGRAM 3D/2D WITH CAD WITH AUGMENTATION: 07/07/2021 CLINICAL: Patient presents for routine screening. S/P bilateral augmentation. Comparison is made to exams dated: 07/15/2020 mammogram, 05/29/2019 mammogram, and 04/11/2018 mammogram - [facility]. There are scattered fibroglandular elements in both breasts. Current study was also evaluated with a Computer Aided Detection (CAD) system. Bilateral breast implants are stable. There are benign post operative findings in both breasts. No significant masses, calcifications, or other findings are seen in either breast. There has been no significant interval change. IMPRESSION: BENIGN There is no mammographic evidence of malignancy. A 1 year screening mammogram is recommended. This exam was interpreted at Station ID: [id number]. NOTE: For mammograms, a report in lay terms will be sent to the patient. Approximately 15% of breast malignancies will not be visualized mammographically. In the management of a palpable breast mass, a negative mammogram must not discourage biopsy of a clinically suspicious lesion. Electronically Signed By: Lv De Jesus acr/penrad:07/07/2021 14:36:47 letter sent: Normal Exam ACR BI-RADS Category 2: Benign Finding(s) 3342F
== END ==
PROVIDERS: PCP Family Medicine; Referring Provider Family Medicine; Visit Provider Family Medicine
DX: Z12.31 Encounter for screening mammogram for malignant neoplasm of breast (principal); Z98.82 Breast implant status
CPT/HCPCS: 77063; 77067

== ENCOUNTER 2021-09-01 15:04 | Day surgery (SDC) | payer OTHER, SELFPAY ==
[2021-09-01] VITALS (7 sets, daily range): BP systolic 105–120; BP diastolic 42–76; PULSE 53–80; RESP 12–16; TEMP 35.9–36.7; O2SAT 99–100; BMI 24.3
--- NOTE | 2021-09-01 | PATH_ITS ---
[facility] Accession Number: [id number] . 01 Material submitted: . PART A: hepatic flexure - HEPATIC FLEXURE POLYP 6MM PART B: sigmoid colon - SIGMOID COLON POLYP 2MM PART C: rectum - RECTUM POLYP X2 2MM . 01 Diagnosis: A. Hepatic Flexure, Polyp 6 mm, Biopsy: Sessile serrated adenoma. . B. Sigmoid Colon, Polyp 2 mm, Biopsy: Hyperplastic polyp. . C. Rectum, Polyp x2, 2 mm, Biopsies: Hyperplastic polyps. MRV 09/05/2021 1213 Local . 01 Electronically signed: . Marilyn Pichardo MD, Pathologist NPI- [id number] . 01 Gross description: . Part A: HEPATIC FLEXURE POLYP 6MM: Received in formalin are 2 fragment(s) of tabor, soft tissue measuring 0.3 x 0.1 x 0.1 cm to 0.1 x 0.1 x 0.1 cm submitted entirely in 1 cassette(s) Part B: SIGMOID COLON POLYP 2MM: Received in formalin is 1 fragment(s) of tabor, soft tissue measuring 0.2 x 0.1 x 0.1 cm submitted entirely in 1 cassette(s) Part C: RECTUM POLYP X2 2MM: Received in formalin are 4 fragment(s) of tabor, soft tissue measuring 0.4 x 0.3 x 0.1 cm to 0.2 x 0.2 x 0.1 cm submitted entirely in 1 cassette(s) /CPE 09/02/2021 0615 Local . 01 Pathologist provided ICD-10: D12.3 . 01 CPT . 380559, 654700, [id number] Specimen Comment: A courtesy copy of this report has been sent to [phone] Performed at: 01 [facility] [address], [place], [place] [id number] MD Javier Grace MD Phone: [phone]
--- NOTE | 2021-09-01 12:34 | P.HP_ITS ---
History of Present Illness History of Present Illness Date Patient Seen: 09/01/21 Chief [place] [facility] Narrative: 60 Years Old Female seen today for consideration of a screening colonoscopy. She has had 2 colonoscopies. First colonoscopy in 2012 showed a 2 mm hyperplastic polyp in the ascending colon, a 3 mm hyperplastic polyp in the splenic flexure, and a small hyperplastic polyp in the sigmoid colon. Last colonoscopy in 2019, indicated for family history of colon cancer, revealed 3 small polyps, tubular adenoma at 85 and 20 cm and a hyperplastic polyp noted in the anus. There have been no lower GI symptoms suggesting disease such as change in bowel habits, bleeding, abdominal pain or anemia. Daughter does have history of colon cancer. Overall, health issues have been stable, including no major cardiac events for at least 6 weeks. Past Medical History: Broken hand 03/17 COLON POLYPS, ADENOMATOUS, HX OF: Other intraarticular fracture of lower end of left radius, subsequent encounter for closed fracture: Dry eye syndrome, bilateral: ONYCHOMYCOSIS: ANXIETY: DERMATITIS, CONTACT: Nondisplaced fracture of lateral malleolus of right fibula, initial encounter for closed fracture: ANAL FISSURE: Urinary incontinence: RECTAL BLEEDING (BRBPR): VITAMIN D DEFICIENCY: LAB ABNORMALITY, TSH LOW: PALPITATIONS: OSTEOPENIA: ECZEMA: POSTMENOPAUSAL W/O HORMONE REPLACEMENT: Injury of right hand: Spinal stenosis, cervical: DISC DISEASE, CERVICAL RADICULITIS: Infiltrating ductal carcinoma, right breast: HYPERLIPIDEMIA: HYPERTENSION: COLONIC POLYPS, HYPERPLASTIC: NEUTROPENIA UNSPECIFIED: HSV: ALLERGY: Breast cancer Past Surgical History: Hysterectomy (2001); TVT secondary to fibroids Bilateral salpingo oophorectomy (11/2004) Rectocele repair Bilateral saline implants Colonoscopy x2 Family History: Father: Hypertension, Hyperlipidemia, AMI at 52. coronary artery bypass graft 63 and CVA during surgery, then 5 years later. Mother: Hyperlipidemia, Skin Cancer, TIAs, PVD, melanoma Siblings: melanoma 1 brother who is alcoholic and uses marijuana Daughter: Colon cancer Social History: Marital Status: Children: 2 kids age 25 and 29 Occupation: Dental hygienist Household Members: dog Education:Bachelors 1-3 drinks per week Patient History Medical History Hemorrhoids History of breast cancer History of UTI HTN (hypertension) Hx of malignant neoplasm of female breast Hyperlipidemia Seasonal allergies Sinus drainage Surgical History (Updated 09/01/21 @ 15:27 by Markel Obrien RN) H/O rectocele repair H/O wrist surgery (~2020) History of augmentation of both breasts History of lumpectomy of right breast History of removal of Port-a-Cath (~2002) Hx of bladder repair surgery S/P complete hysterectomy Status post surgery (08/22/18) Family & Social History Family History Mother Hypertension Cancer Father Hypertension Heart disease Stroke Social History: household members spouse,family,children Tobacco & Substance use: Smoking Status Never smoker alcohol intake current Substance Use Type does not use Meds Home Medications and Allergies Home Medications Medication Instructions Recorded Confirmed Type atorvastatin 10 mg tablet (Lipitor) 10 mg PO DAILY 05/20/18 09/01/21 History calcium carb-magnesium oxide-vit C 1,000 tab PO DAILY tab 05/20/18 09/01/21 History 400 mg calcium-117 mg-167 mg tablet cholecalciferol (vitamin D3) 125 5,000 unit PO DAILY 05/20/18 09/01/21 History mcg (5,000 unit) capsule hydrochlorothiazide 12.5 mg tablet 12.5 mg PO DAILY 05/20/18 09/01/21 History multivitamin 1 tab PO DAILY 05/20/18 09/01/21 History lisinopril 20 mg tablet 20 mg PO DAILY 06/20/18 09/01/21 History estradiol 0.5 gram VAG PRN PRN 09/01/21 09/01/21 History Allergies Allergy/AdvReac Type Severity Reaction Status Date / Time No Known Drug Allergies Allergy Verified 09/01/21 15:28 Review of Systems Review of Systems Narrative: All remaining ROS were reviewed and negative except as addressed. Exam Narrative Exam Narrative: GENERAL: Alert and oriented, appearing stated age and in no acute distress. HEENT: Head normocephalic/atraumatic. Extraocular movements intact. LUNGS: Clear to ausculation bilaterally, no wheezes, rhonchi or rales. CV: Normal S1 and S2 with regular rate and rhythm, no audible murmurs, rubs or gallops. ABDOMEN: Soft, non-tender, non-distended, no organomegaly. Positive bowel sounds. EXTREMITIES: No clubbing, cyanosis, or edema. NEURO: Cranial nerves II through XII grossly intact, no focal deficits. PSYCH: Alert and oriented x 3. SKIN: No concerning lesions. Assessment & Plan Assessment & Plan narrative: 1. Family history of colon cancer less than 50 years 2. History of colon polyps, adenomatous 3. History of colon polyps, hyperplastic 4. Screening for colon cancer Plan for colonoscopy. The nature and character of the procedure as well as anticipated results were discussed. The possibility of not completing the procedure was also discussed. Possible complications including aspiration pneumonia, bleeding, perforation and reaction to medications either for sedation or preparation and missed lesions were discussed. Questions were answered and proceeding to the colonoscopy was elected. Informed consent signed. I sincerely appreciate the referral allowing me to participate in this patient's care. Please contact me with any questions or concerns.
--- NOTE | 2021-09-01 12:36 | PM.OP.COLON ---
Operative Date/Time/Diagnoses Date of procedure: 09/01/21 Procedure Notes SCOAP/Timeout: 4:31 p.m. Procedure in detail: ENDOSCOPIST: Larissa Gray MD Sedation RN: Penny Alatorre RN Sedation start time: 4:32 p.m. Sedation end time: 5:06 p.m. PROCEDURE: Colonoscopy with cold biopsy INDICATIONS: 1. Family history of colon cancer less than 50 years 2. History of colon polyps, adenomatous 3. History of colon polyps, hyperplastic 4. Screening for colon cancer MEDICATION: Levsin 0.125 mg sublingual, incremental doses of Versed and fentanyl until appropriate level sedation achieved. ASA CLASS: 2 CECAL WITHDRAWAL TIME: 21 minutes COMPLICATIONS: None. EXTENT OF PROCEDURE: Cecum. QUALITY OF PREP: Good with portions of liquid stool. PROCEDURE: Prior to insertion of the colonoscope, a digital rectal examination was accomplished with circumferential palpation of the distal rectal mucosa without significant findings being noted. The high-definition pediatric colonoscope was passed into the rectum in the usual fashion and advanced over to the cecum without difficulty. The ileocecal valve, appendiceal stoma, and medial wall all could be inspected and no abnormalities were seen. ASCENDING COLON: As the colonoscope was withdrawn, care was taken to expose and inspect the haustral folds and no abnormalities were seen. HEPATIC FLEXURE: A 6 mm polyp was seen and removed with cold biopsy forceps, otherwise, normal, no diverticula or other abnormalities. TRANSVERSE COLON: Normal, no polyps, diverticula or other abnormalities. DESCENDING COLON: Normal, no polyps, diverticula or other abnormalities. SIGMOID COLON: A 2 mm polyp was seen and removed with cold biopsy forceps. Otherwise, normal, no diverticula or other abnormalities. RECTUM: 2 small 2 mm polyps were seen and removed with cold biopsy forceps. J maneuver was produced. There was no significant perianal disease. The J maneuver was broken. The remainder of the rectum was inspected and there was minor external hemorrhoid disease. The scope was withdrawn. IMPRESSION: 1. Hepatic flexure polyp x1, 6 mm, removed with cold biopsy forceps 2. Sigmoid polyp x1, 2 mm, removed with cold biopsy forceps 3. Rectal polyp x2, 2 mm, removed with cold biopsy forceps 4. External hemorrhoids, moderate, nonthrombosed PLAN: 1. Follow-up in clinic status post pathology results. The possibility of a missed lesion including a malignancy has been discussed with the patient previously. Potential alarm symptoms have been discussed and should be reported immediately.
[2021-09-01] MEDS: LACTATED RINGERS 1,000 ML 200 ML IV (16:00)
[2021-09-01] MEDS: MIDAZOLAM 5 MG/5 ML VIAL IV (16:32)
[2021-09-01] MEDS: fentaNYL 250 MCG/5 ML INJ 175 MCG IV (16:32)
== END 2021-09-01 17:40 | disposition home or self-care (01) ==
PROVIDERS: PCP Family Medicine; Referring Provider Student in an Organized Health Care Education/Training Program; Visit Provider Student in an Organized Health Care Education/Training Program
PROC: 0DJD8ZZ Inspection of Lower Intestinal Tract, Via Natural or Artificial Opening Endoscopic (ICD-10-PCS; CPT 45378; principal; 2021-09-01 16:00)
DX: Z12.11 Encounter for screening for malignant neoplasm of colon (principal); Z86.010 Personal history of colon polyps; Z80.0 Family history of malignant neoplasm of digestive organs; K64.8 Other hemorrhoids; D12.2 Benign neoplasm of ascending colon; K62.1 Rectal polyp
CPT/HCPCS: 45380; J2250; J3010

== ENCOUNTER → 2022-06-05 10:12 | Outpatient (CLI) | payer OTHER, SELFPAY ==
--- NOTE | 2022-06-05 | DI.US.S_ITS ---
PROCEDURE: US RENAL COMPLETE INDICATIONS: URINARY INCONTINENCE TECHNIQUE: Real-time scanning was performed of the kidneys and bladder, with image documentation. COMPARISON: , CT, CHEST/ABD/PEL WITH CONTRAST, 10/31/2012, 10:46. FINDINGS: Kidneys: Kidneys are normal in size. Right kidney measures 11.4 cm long; left kidney measures 11.7 cm long. Right renal cortical thickness is 1.4 cm; left renal cortical thickness is 1.1 cm. There arm multiple punctate echogenic foci bilaterally, right greater than left. These may potentially represent tiny stones. No hydronephrosis or nephrolithiasis. No suspicious solid mass lesions. Bladder: Pre-void bladder volume is 430 mL. Post-void residual is 5 mL. Pre-void images demonstrate no intraluminal masses or stones. On pre-void images, bilateral ureteral jets are noted with color Doppler interrogation. (Of note, ureteral jets may not be detectable in up to 25% of cases due to insufficient differences in specific gravity between ureteral and bladder urine). Miscellaneous: No free pelvic fluid. IMPRESSION: 1. Kidneys are of normal size with no evidence of hydronephrosis. 2. Question multiple tiny bilateral renal stones. 3. Unremarkable bladder. Comment: If suspect nephrolithiasis, consider CT KUB for confirmation. Dictated by: Liam Meza M.D. on 06/05/2022 at 12:43 Approved by: Liam Meza M.D. on 06/05/2022 at 12:47
== END ==
PROVIDERS: PCP Family Medicine; Referring Provider Family Medicine; Visit Provider Family Medicine
DX: R32 Unspecified urinary incontinence (principal)
CPT/HCPCS: 76770

== ENCOUNTER → 2022-10-01 14:11 | Outpatient (CLI) | payer OTHER, SELFPAY ==
--- NOTE | 2022-10-01 | DI.MG.S_ITS ---
BILATERAL DIGITAL SCREENING MAMMOGRAM 3D/2D WITH CAD WITH AUGMENTATION: 10/01/2022 Comparison is made to exams dated: 07/15/2020 mammogram, 07/07/2021 mammogram, 05/29/2019 mammogram, 04/11/2018 mammogram, 12/14/2016 mammogram, and 06/17/2015 mammogram - [facility]. There are scattered areas of fibroglandular density in both breasts (category b / 25%-50% glandular tissue). Current study was also evaluated with a Computer Aided Detection (CAD) system. Bilateral breast implants are stable. There are benign post operative findings in both breasts. No significant masses, calcifications, or other findings are seen in either breast. There has been no significant interval change. IMPRESSION: BENIGN There is no mammographic evidence of malignancy. A 1 year screening mammogram is recommended. This exam was interpreted at Station ID: [id number]. NOTE: For mammograms, a report in lay terms will be sent to the patient. Approximately 15% of breast malignancies will not be visualized mammographically. In the management of a palpable breast mass, a negative mammogram must not discourage biopsy of a clinically suspicious lesion. Electronically Signed By: Magdaleno christensen/marcos:10/01/2022 15:19:10 letter sent: Normal Exam ACR BI-RADS Category 2: Benign Finding(s) 3342F
== END ==
PROVIDERS: PCP Family Medicine; Referring Provider Family Medicine; Visit Provider Family Medicine
DX: Z12.31 Encounter for screening mammogram for malignant neoplasm of breast (principal)
CPT/HCPCS: 77063; 77067

== ENCOUNTER → 2023-06-21 | Outpatient (CLI) | payer OTHER, SELFPAY ==
--- NOTE | 2023-06-21 10:14 | DI.RAD.S_ITS ---
Bone Density Report Name: ALISHA BEATTY Age: 62 Sex: Female Ethnicity: White Date of : 1960 Indication: postmenopausal; screening for osteoporosis; Referring Provider: MATTHEW RAMIREZ Study: Bone densitometry was performed. Exam Date: June 21, 2023 Accession number: [id number] Bone Density: Region BMD T-score Z-score Classification AP Spine(L1-L4) 0.964 -0.8 0.8 Normal Femoral Neck (Left) 0.684 -1.5 -0.1 Osteopenia Total Hip (Left) 0.885 -0.5 0.6 Normal Femoral Neck (Right) 0.680 -1.5 -0.2 Osteopenia Total Hip (Right) 0.871 -0.6 0.5 Normal Total Hip Mean 0.878 -0.6 0.6 Normal World Health Organization criteria for BMD impression classify patients as: Normal (T-score at or above -1.0), Osteopenia (T-score between -1.0 and -2.5), or Osteoporosis (T-score at or below -2.5). 10-year Fracture Risk(1): Major Osteoporotic Fracture 8.4% Hip Fracture 0.8% Reported Risk Factors: [place] (), Neck BMD=0.680, BMI=24.3 (1) FRAX(R) Version 3.08. Fracture probability calculated for an untreated patient. Fracture probability may be lower if the patient has received treatment. Previous Exams: -- Region Exam Age BMD T-score BMD Change BMD Change Date g/cm2 vs Baseline vs Previous -- AP Spine (L1-L4) 06/21/2023 62 0.964 -0.8 -0.229 (-19.2%)# -0.050 (-4.9%)# 04/21/2021 60 1.014 -0.3 -0.179 (-15.0%)* -0.046 (-4.4%)* 05/15/2019 58 1.060 0.1 -0.133 (-11.1%)* 0.002 (0.2%) 12/14/2016 56 1.058 0.1 -0.135 (-11.3%)* 0.028 (2.7%)* 12/21/2011 51 1.030 -0.2 -0.163 (-13.7%)* -0.022 (-2.1%) 12/16/2009 49 1.052 0.0 -0.141 (-11.8%)* -0.020 (-1.9%) 12/24/2008 48 1.072 0.2 -0.121 (-10.1%)* -0.028 (-2.6%)* 06/06/2007 46 1.100 0.5 -0.092 (-7.8%)* -0.091 (-7.7%)* 12/21/2005 45 1.191 1.3 -0.001 (-0.1%) -0.001 (-0.1%) 10/11/2003 43 1.193 1.3 Total Hip(Left) 06/21/2023 62 0.885 -0.5 -0.065 (-6.9%)# -0.008 (-0.9%)# 04/21/2021 60 0.893 -0.4 -0.057 (-6.0%)* -0.018 (-1.9%) 05/15/2019 58 0.911 -0.3 -0.039 (-4.2%)* 0.013 (1.4%) 12/14/2016 56 0.898 -0.4 -0.052 (-5.5%)* -0.030 (-3.2%)* 12/21/2011 51 0.928 -0.1 -0.022 (-2.3%) 0.022 (2.5%) 12/16/2009 49 0.906 -0.3 -0.045 (-4.7%)* -0.014 (-1.5%) 12/24/2008 48 0.919 -0.2 -0.031 (-3.3%)* -0.001 (-0.1%) 06/06/2007 46 0.921 -0.2 -0.030 (-3.1%)* -0.060 (-6.2%)* 12/21/2005 45 0.981 0.3 0.031 (3.2%)* 0.031 (3.2%)* 10/11/2003 43 0.951 0.1 Total Hip(Right) 06/21/2023 62 0.871 -0.6 -0.089 (-9.3%)# 0.000 (-0.1%)# 04/21/2021 60 0.871 -0.6 -0.089 (-9.2%)* -0.033 (-3.7%)* 05/15/2019 58 0.905 -0.3 -0.055 (-5.8%)* -0.010 (-1.1%) 12/14/2016 56 0.915 -0.2 -0.045 (-4.7%)* -0.008 (-0.8%) 12/21/2011 51 0.923 -0.2 -0.037 (-3.9%)* -0.011 (-1.2%) 12/16/2009 49 0.933 -0.1 -0.026 (-2.8%) -0.013 (-1.3%) 12/24/2008 48 0.946 0.0 -0.014 (-1.4%) 0.014 (1.5%) 06/06/2007 46 0.932 -0.1 -0.028 (-2.9%)* -0.069 (-6.9%)* 12/21/2005 45 1.001 0.5 0.042 (4.3%)* 0.042 (4.3%)* 10/11/2003 43 0.960 0.1 -- *Denotes significance at 95% confidence level, LSC for AP Spine = 0.022 g/cm2, LSC for Total Hip = 0.027 g/cm2 # Denotes dissimilar scan types or analysis methods Impression: The patient has low bone mass, based on the Left Femoral Neck T-score. The patient has an estimated ten-year risk of hip fracture of 0.8% and an estimated ten-year risk of major fracture of 8.4%, based on the WHO FRAX algorithm. No significant bone loss was observed. Discussion: BONE DENSITY IS LOW AT ONE OR MORE SKELETAL SITES. This patient's lowest T-score is low at one or more skeletal sites. It meets the World Health Organization's (WHO) criteria for low bone mass (T-score between -1.0 and -2.5). The patient's 10-year risk of fracture as calculated by FRAX is less than the threshold where pharmacological therapy is recommended by the National Osteoporosis Foundation (NOF). However, all treatment decisions require clinical judgment and consideration of individual patient factors, including patient preferences, comorbidities, previous drug use, risk factors not captured in the FRAX model (e.g., frailty, falls, vitamin D deficiency, increased bone turnover, interval significant decline in bone density) and possible under or overestimation of fracture risk by FRAX. The patient should follow a healthful lifestyle (good nutrition with adequate calcium and vitamin D, and appropriate weight-bearing exercise). Follow-Up: Consider repeating this study in 2 to 3 years to reassess this patient's status, or sooner if there is some new clinical indication. Reported by: KIANA TODD M.D. on 06/21/2023 10:42:00 AM.
== END ==
LOC: RAD 10:12
PROVIDERS: PCP Family Medicine; Referring Provider Family Medicine; Visit Provider Family Medicine
DX: M85.89 Other specified disorders of bone density and structure, multiple sites (principal)
CPT/HCPCS: 77080

== ENCOUNTER → 2024-01-01 12:44 | Outpatient (CLI) | payer OTHER, SELFPAY ==
--- NOTE | 2024-01-01 12:45 | DI.MG.S_ITS ---
BILATERAL DIGITAL SCREENING MAMMOGRAM 3D/2D WITH CAD WITH AUGMENTATION: 01/01/2024 CLINICAL: Routine screening. Personal history of right breast cancer. Comparison is made to exams dated: 10/01/2022 mammogram, 07/07/2021 mammogram, and 07/15/2020 mammogram - [facility]. There are scattered areas of fibroglandular density (category b / 25%-50% glandular tissue). Current study was also evaluated with a Computer Aided Detection (CAD) system. Bilateral breast implants are stable. There are benign post operative findings in both breasts. No significant masses, calcifications, or other findings are seen in either breast. There has been no significant interval change. IMPRESSION: BENIGN There is no mammographic evidence of malignancy. A 1 year screening mammogram is recommended. This exam was interpreted at Station ID: [id number]. NOTE: For mammograms, a report in lay terms will be sent to the patient. Approximately 15% of breast malignancies will not be visualized mammographically. In the management of a palpable breast mass, a negative mammogram must not discourage biopsy of a clinically suspicious lesion. Electronically Signed By: Catarina bryant/marcos:01/01/2024 18:20:10 letter sent: Normal Exam ACR BI-RADS Category 2: Benign
== END ==
PROVIDERS: PCP Family Medicine; Referring Provider Family Medicine; Visit Provider Family Medicine
DX: Z12.31 Encounter for screening mammogram for malignant neoplasm of breast (principal); Z85.3 Personal history of malignant neoplasm of breast
CPT/HCPCS: 77063; 77067

== ENCOUNTER 2024-12-09 11:36 | Emergency (ER) | payer OTHER, SELFPAY ==
[2024-12-09 12:14] VITALS: BP 127/63; PULSE 64; RESP 17; TEMP 36.6; O2SAT 100; BMI 25.0
--- NOTE | 2024-12-09 12:39 | DI.RAD.S_ITS ---
PROCEDURE: XR CHEST 1V INDICATIONS: Chest Pain TECHNIQUE: One view of the chest was acquired. COMPARISON: None. FINDINGS: Surgical changes and devices: None. Lungs and pleura: Lungs are clear. No pleural effusions or pneumothorax. Mediastinum: Mediastinal contours appear normal. Heart size is normal. Bones and chest wall: No suspicious bony lesions. Overlying soft tissues appear unremarkable. IMPRESSION: No acute cardiopulmonary pathology. Dictated by: Figueroa Nino M.D. on 12/09/2024 at 13:16 Approved by: Figueroa Nino M.D. on 12/09/2024 at 13:18
--- NOTE | 2024-12-09 12:39 | EKG_ITS ---
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
[2024-12-09 12:45] LABS: Add Manual Diff / Slide Review NO; Hematocrit 43.7 % (36-46); Hemoglobin 14.6 g/dL (12.0-16.0); Lymphocytes Absolute Auto 2000 /uL (1100-4500); Mean Corpuscular HGB Conc 33.5 % (30-36); Mean Corpuscular Hemoglobin 30.1 PG (26-34); Mean Corpuscular Volume 89.7 fL (80-100); Platelet Count 277 X10^3/uL (150-400)
[2024-12-09 12:50] LABS: INR 1.0 (0.9-1.3); Prothrombin Time 11.5 SECONDS (9.4-12.5)
[2024-12-09 12:53] LABS: PTT Partial Thromboplastin Tim 30 SECONDS (25.1-36.5)
[2024-12-09 12:58] LABS: Alanine Aminotransferase 33 IU/L (<35); Albumin 5.0 g/dL (3.5-5.0); Albumin Globulin Ratio 1.5 (1.0-2.8); Alkaline Phosphatase 85 U/L (38-126); Blood Urea Nitrogen 20 mg/dL (7-17); Calcium 9.6 mg/dL (8.4-10.2); Carbon Dioxide 26 mmol/L (22-32); Chloride 102 mmol/L (98-107); Creatine Kinase 96 U/L (30-135); Estimated Glomerular Filt Rate > 60 mL/min (>60); Globulin 3.4 g/dL (1.7-4.1); Glucose 99 mg/dL (70-99); HEMOLYSIS < 15 (0-50); Lipase 149 U/L (23-300); Magnesium 2.1 mg/dL (1.6-2.3); Potassium 3.7 mmol/L (3.4-5.1); Sodium 138 mmol/L (137-145); Total Protein 8.4 g/dL (6.3-8.2)
[2024-12-09 13:09] LABS: NT-proBNP (BNP-Adult 18+) 82 pg/mL (<125); Troponin I < 0.012 ng/mL (0.01-0.034)
[2024-12-09 15:36] LABS: Troponin I 0.020 ng/mL (0.01-0.034)
[2024-12-09 15:38] VITALS: BP 143/66; PULSE 52; RESP 16; O2SAT 98
--- NOTE | 2024-12-09 18:13 | ED_ITS ---
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 No current chest pain or shortness of breath. No fevers or chills. No recent cough. Denies previous history of heart attack, blood clots, leg pain or swelling, chest pain. Related Data Home Medications ?Medication ?Instructions ?Recorded ?Confirmed atorvastatin 10 mg tablet (Lipitor) 10 mg PO DAILY 09/01/21 calcium 400 mg (as 1,000 tab PO DAILY 05/20/18 09/01/21 carbonate)-magnesium 117 mg-vit C 167 mg tablet cholecalciferol (vitamin D3) 125 5,000 unit PO DAILY 0 05/20/18 09/01/21 mcg (5,000 unit) capsule hydrochlorothiazide 12.5 mg tablet 12.5 mg PO DAILY 09/01/21 multivitamin 1 tab PO DAILY 05/20/1806/20 lisinopril 20 mg tablet 20 mg PO DAILY 06/20/1806/20 estradiol 0.01% (0.1 mg/gram) 0.5 gram vaginal PRN PRN Dry Skin 09/01/21 09/01/21 vaginal cream Allergies Allergy/AdvReac Type Severity Reaction Status Date / Time No Known Drug Allergies Allergy Verified 09/01/21 15:28 Patient History Medical History (Updated 12/09/24 @ 20:05 by Calvin Britton MD) History of breast cancer History of UTI Sinus drainage Hyperlipidemia Hemorrhoids Seasonal allergies Hx of malignant neoplasm of female breast HTN (hypertension) Surgical History (Updated 09/01/21 @ 15:27 by Markel Obrien RN) H/O wrist surgery (~2020) Status post surgery (08/22/18) Hx of bladder repair surgery History of removal of Port-a-Cath (~2002) H/O rectocele repair History of augmentation of both breasts History of lumpectomy of right breast S/P complete hysterectomy Family History Mother Hypertension Cancer Father Hypertension Heart disease Stroke Social History marital status: household members: spouse, family and children occupational status: employed Smoking Status: Never smoker alcohol intake: current substance use type: does not use Smoking Status: Never smoker alcohol intake frequency: a few times a month Exam Narrative Exam Narrative: GENERAL: Well-developed patient, in mild distress. HEAD: Atraumatic. Normocephalic. EYES: Pupils equal round and reactive. Extraocular motions intact. No scleral icterus. No injection or drainage. ENT: Nose without bleeding, purulent drainage. Throat without erythema, tonsillar hypertrophy or exudate. Airway patent. NECK: Trachea midline. Non tender CARDIOVASCULAR: Regular rate and rhythm without murmurs, gallops, or rubs. RESPIRATORY: Clear to auscultation. Breath sounds equal bilaterally. No wheezes, rales, or rhonchi. GASTROINTESTINAL: Abdomen soft, non-tender, nondistended. EXTREMITIES: No edema or joint tenderness. BACK: Nontender without deformity or crepitance. No flank tenderness. NEURO: AOx3. Motor functions grossly nonfocal. SKIN: No rash or erythema of visible areas Initial Vital Signs Initial Vital Signs: Vital Signs Temperature 98 F 12/09/24 12:14 Pulse Rate 64 12/09/24 12:14 Respiratory Rate 17 12/09/24 12:14 Blood Pressure 127/63 12/09/24 12:14 Pulse Oximetry 100 12/09/24 12:14 Oxygen Delivery Method Room Air 12/09/24 12:14 Course Orders Ordered: ED Orders 12/09/24 12:30 Complete Blood Count AUTO DIFF Stat Comprehensive Metabolic Panel Stat Lipase Stat Magnesium Stat NT-proBNP (BNP-Adult 18+) Stat PTT Partial Thromboplastin Yousif Stat Prothrombin Time INR Stat Troponin & CK Cardiac Panel Stat 12/09/24 12:39 XR chest 1V Stat EKG-12 Lead Stat 12/09/24 15:04 Trop I [Troponin I] Stat 12/09/24 19:05 D Dimer Stat Troponin I Stat Vital Signs Vital signs: Vital Signs - 8 hr 12/09/24 12:14 12/09/24 15:38 12/09/24 18:33 Temperature 98 F Pulse Rate 64 52 L 88 Respiratory Rate 17 16 16 Blood Pressure 127/63 143/66 H 130/58 L Pulse Oximetry 100 98 99 Oxygen Delivery Method Room Air Room Air Room Air Medical Decision Making Lab Data Lab results reviewed: Yes I reviewed the patient's lab results. Lab results narrative: White blood cell count 7100, hemoglobin 14.6, platelets adequate. Glucose 99. Renal function, electrolytes serum CO2 normal. Liver functions and lipase normal. Troponin negative. 12/09/24 12:30 12/09/24 12:30 Labs: Lab Results 12/09/24 12/09/24 12/09/24 Range/Units 12:30 15:04 19:05 WBC 7.1 (4.5-11.0) X10^3/uL RBC 4.87 (4.0-5.2) X10^6/uL Hgb 14.6 (12.0-16.0) g/dL Hct 43.7 (36-46) % MCV 89.7 (80-100) fL MCH 30.1 (26-34) PG MCHC 33.5 (30-36) % RDW 13.1 (11.6-14.8) % Plt Count 277 (150-400) X10^3/uL Neut % (Auto) 64.5 (50-75) % Lymph % (Auto) 27.5 (25-40) % [place] % (Auto) 6.5 (3-14) % Eos % (Auto) 0.9 L (2-4) % Baso % (Auto) 0.6 (0-2) % Neut # (Auto) 4600 (3816-8084) /uL Lymph # (Auto) 2000 (8375-8077) /uL [place] # (Auto) 500 (0-900) /uL Eos # (Auto) 100 (0-450) /uL Baso # (Auto) 0 (0-100) /uL PT 11.5 (9.4-12.5) SECONDS INR 1.0 (0.9-1.3) APTT 30 (25.1-36.5) SECONDS D-Dimer 236 (<500) ng/ml Sodium 138 (137-145) mmol/L Potassium 3.7 (3.4-5.1) mmol/L Chloride 102 (98-107) mmol/L Carbon Dioxide 26 (22-32) mmol/L BUN 20 H (7-17) mg/dL Creatinine 0.69 (0.52-1.04) mg/dL Estimated GFR > 60 (>60) mL/min BUN/Creatinine Ratio 29.0 H (6-22) Glucose 99 (70-99) mg/dL Calcium 9.6 (8.4-10.2) mg/dL Magnesium 2.1 (1.6-2.3) mg/dL Total Bilirubin 0.7 (0.2-1.3) mg/dL AST 36 (14-36) IU/L ALT 33 (<35) IU/L Alkaline Phosphatase 85 (38-126) U/L Total Creatine Kinase 96 (30-135) U/L Troponin I < 0.012 0.020 < 0.012 (0.01-0.034) ng/mL NT-Pro-B Natriuret Pep 82 (<125) pg/mL Total Protein 8.4 H (6.3-8.2) g/dL Albumin 5.0 (3.5-5.0) g/dL Globulin 3.4 (1.7-4.1) g/dL Albumin/Globulin Ratio 1.5 (1.0-2.8) Lipase 149 (23-300) U/L Imaging Data Chest x-ray: Radiologist's Impression: [place] [address] XRay Report Signed Patient: Maria Guadalupe Ny MR#: [id number] : 1960 Acct:[id number] Age/Sex: 64 / F Date of Service: 12/09/24 Loc: ED Accession Number: [id number] Procedure: XR chest 1V Ordering Provider: Loli Ford D.O. PROCEDURE: XR CHEST 1V INDICATIONS: Chest Pain TECHNIQUE: One view of the chest was acquired. COMPARISON: None. FINDINGS: Surgical changes and devices: None. Lungs and pleura: Lungs are clear. No pleural effusions or pneumothorax. Mediastinum: Mediastinal contours appear normal. Heart size is normal. Bones and chest wall: No suspicious bony lesions. Overlying soft tissues appear unremarkable. IMPRESSION: No acute cardiopulmonary pathology. Dictated by: Figueroa Nino M.D. on 12/09/2024 at 13:16 Approved by: Figueroa Nino M.D. on 12/09/2024 at 13:18 ECG Data Attestation: I personally reviewed and interpreted this ECG as follows: Interpretation: 1229, normal sinus rhythm with sinus arrhythmia, rate 61. No obvious ST segment elevation or depression changes. NE 146, QRS 68, QTC 420. MDM Narrative Medical decision making narrative: 64-year-old female with ongoing social stressors impending [place] [facility], history of anxiety to restart citalopram, having intermittent shortness breath and heart palpitation symptoms. Normal sinus rhythm on EKG. Afebrile, sirs screen negative. Labs pending. EKG shows normal sinus rhythm, no ectopy, some sinus arrhythmia noted. Rate 61. Chest x-ray no acute changes, see radiology report. Lab data: White blood cell count 7100, hemoglobin 14.6, platelets adequate. Glucose 99. Renal function, electrolytes serum CO2 normal. Liver functions and lipase normal. Troponin negative. Interval repeat troponin 0.020 which is measurable but still quite low, we will add D-dimer, has been a number of hours since troponin, we will repeat troponin. Patient agreeable. Troponin negative, D-dimer negative. Patient would like to go home. Discharged home with family. Follow up with PCP as planned, initiation of citalopram as an outpatient as planned. Consider ambulatory cardiac monitoring. Return precautions discussed. Discharged home with family. 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 Planning to start/restart citalopram medication prescribed by your primary care provider. Palpitations and sensation that he might pass out today. Reassuring EKG and lab testing today, not suggestive of heart attack or abnormal clotting disorders. Electrolytes also unremarkable, hemoglobin normal. Vitals unremarkable today. Consider further workup as an outpatient, consider ambulatory cardiac monitoring such as a ZIO patch, that can be ordered by your regular provider if needed. Follow up with your regular provider advised next few days. Return earlier to this/nearest emergency department for any change worsening symptoms or any concerns prior. Prescriptions: No Action hydrochlorothiazide 12.5 mg tablet 12.5 mg PO DAILY atorvastatin [Lipitor] 10 mg tablet 10 mg PO DAILY Ca carbonate-mag oxide-vit C 400 mg calcium -117 mg-167 mg tablet 1,000 tab PO DAILY cholecalciferol (vitamin D3) 5,000 unit capsule 5,000 unit PO DAILY multivitamin tablet 1 tab PO DAILY lisinopril 20 mg Tablet 20 mg PO DAILY estradiol 0.01 % (0.1 mg/gram) cream 0.5 gram VAG PRN PRN (Reason: Dry Skin) Rx Instructions: Starting one week after surgery, place small amount of cream just inside the vagina until post op visit Referrals: Sadie Hernandez MD [Primary Care Provider, Family Practice] Stand Alone Forms: Patient Portal/API
[2024-12-09 18:33] VITALS: BP 130/58; PULSE 88; RESP 16; O2SAT 99
[2024-12-09 19:46] LABS: Troponin I < 0.012 ng/mL (0.01-0.034)
== END 2024-12-09 20:09 | disposition home or self-care (01) ==
PROVIDERS: Emergency Medicine; Emergency Provider Emergency Medicine; PCP Family Medicine
DX: R00.2 Palpitations (principal); R42 Dizziness and giddiness; R07.9 Chest pain, unspecified
CPT/HCPCS: 36415; 71045; 80053; 82550; 83690; 83735; 83880; 84484; 85025; 85379; 85610; 85730; 93005; 99284